=== PATIENT | male | born 1985 | race Caucasian/White ===

== ENCOUNTER 2017-05-25 02:23 | Emergency (ER) | payer SELFPAY ==
[2017-05-25] MEDS ORDERED: ATIVAN INJ 2 MG VIAL IVP ONE (02:29)
[2017-05-25] MEDS ORDERED: NS 1000 ML 1,000 ML ONE (02:30)
[2017-05-25] MEDS ORDERED: THIAMINE HCL INJ ONE (02:31)
[2017-05-25] MEDS ORDERED: PHENOBARBITAL SODIUM INJ 65 MG VIAL ONE (02:31)
[2017-05-25] MEDS ORDERED: MAGNESIUM SULFATE 50% INJ ONE (02:31)
[2017-05-25] MEDS ORDERED: MVI INJ (ADULT) IV ONE (02:32)
[2017-05-25 02:34] VITALS: BP 164/104; BMI 24.2
[2017-05-25] MEDS ORDERED: ATIVAN INJ 2 MG VIAL ONE (02:34)
[2017-05-25] MEDS ORDERED: NS 1000 ML 1,000 ML with THIAMINE HCL INJ 100 MG, MAGNESIUM SULFATE 50% INJ 1 GM, MVI I... IV SCH ×5 (03:00)
[2017-05-25 03:12] LABS: BASOPHILS # (AUTO) 0.1 X10^3/uL (0.0-0.1); BASOPHILS % (AUTO) 0.9 % (0.2-1.0); EOSINOPHILS % (AUTO) 0.6 % (0.9-2.9); HEMATOCRIT 49.6 % (42.0-54.0); HEMOGLOBIN 17.1 g/dL (13.5-18.0); LYMPHOCYTES # (AUTO) 2.4 X10^3/uL (1.3-2.9); MEAN CORPUSCULAR HGB CONC 34.5 g/dL (33.0-35.0); MEAN CORPUSCULAR VOLUME 95.9 fL (80.0-100.0); MEAN PLATELET VOLUME 8.3 fL (7.4-11.0); MONOCYTES % (AUTO) 12.2 % (0.0-13.0); NEUTROPHILS # (AUTO) 4.4 x10^3/uL (2.2-4.8); NEUTROPHILS % (AUTO) 56.3 % (42.0-75.0); PLATELET COUNT 265 X10^3/uL (150.0-450.0); RED BLOOD COUNT 5.18 X10^6/uL (4.7-6.0); WHITE BLOOD COUNT 7.9 X10^3/uL (3.6-10.0)
[2017-05-25 03:13] LABS: BILIRUBIN,URINE NEGATIVE (NEGATIVE); BLOOD/HEMOGLOBIN,URINE 1+ (NEGATIVE); GLUCOSE, URINE NEGATIVE (NEGATIVE); KETONES,URINE 4+ (NEGATIVE); LEUKOCYTE ESTERASE ,URINE NEGATIVE (NEGATIVE); NITRITES,URINE NEGATIVE (NEGATIVE); PROTEIN,URINE 2+ (NEGATIVE); UROBILINOGEN,URINE NORMAL (NORMAL)
[2017-05-25 03:19] LABS: ALANINE AMINOTRANSFERASE 72 Units/L (12-78); ALBUMIN 4.2 g/dL (3.4-5.0); ALKALINE PHOSPHATASE 144 Units/L (46-116); ASPARTATE AMINO TRANSFERASE 94 Units/L (15-37); BLOOD UREA NITROGEN 11 mg/dL (7-18); CALCIUM 9.2 mg/dL (8.5-10.1); CARBON DIOXIDE 26.3 mmol/L (21-32); CHLORIDE 101 mmol/L (98-107); CREATININE 1.08 mg/dL (0.70-1.30); SODIUM 140 mmol/L (136-145); TOTAL PROTEIN 8.2 g/dL (6.4-8.2); eGFR BLACK RACES > 60 (>60); eGFR NON BLACK RACES > 60 (>60)
[2017-05-25 03:24] LABS: SALICYLATE < 2.8 mg/dL (2.8-20)
[2017-05-25 03:27] LABS: APPEARANCE,URINE CLEAR (CLEAR); COLOR,URINE YELLOW (YELLOW); RBC,URINE 0-3 /HPF (NEGATIVE)
[2017-05-25 03:28] LABS: BACTERIA,URINE NEGATIVE /HPF (NEGATIVE); MUCUS,URINE FEW /HPF (NEGATIVE); SQUAMOUS EPITHELIAL CELL,UR RARE /HPF (NEGATIVE)
[2017-05-25 03:32] LABS: BLOOD ALCOHOL 314 mg/dL (0-19.9)
--- NOTE | 2017-05-25 03:56 | DR.GENAD ---
HPI - Complaint/Symptoms Chief Complaint Doctors Comments: Patient states that he has been drinking alcohol for a while and has been to two different facilities in attempt to quit drinking but each time he has a relapse. He is single, works as cook. He denies being homocidal or suicidal. Chief Complaint:: PT STATES THAT HE HAS BEEN DRINKING ABOUT 1-2 PINTS OF VODKA EVERY DAY FOR THE PAST MONTH. REQUESTING DETOX BECAUSE HE STATES HE CAN NO LONGER TOLERATE THIS MUCH ALCOHOL. - Source History Provided: Patient - Mode of Arrival Mode of Arrival: Ambulatory - Timing Onset of Chief Complaint: 05/25/17 PMH - PMH Past Medical History: Yes Past Medical History: Asthma Past Surgical History: No - Family History History of Family Medical Conditions: Yes Family Medical History: Diabetes Mellitus, Cancer, [place], Hypertension - Social History Do you use any recreational Drugs:: Yes (THC) - infectious screening Have you traveled outside the country in the last 6 months?: No ROS - Review of Systems Eyes: No Symptoms Reported ENTM: No Symptoms Reported Respiratoy: No Symptoms Reported Cardiovascular: No Symptoms Reported Gastrointestinal/Abdominal: No Symptoms Reported Genitourinary: No Symptoms Reported Neurological: No Symptoms Reported Musculoskeletal: No Symptoms Reported Integumentary: No Symptoms Reported Hematologic/Lymphatic: No Symptoms Reported Endocrine: No Symptoms Reported Psychiatric: No Symptoms Reported All Other Systems: Reviewed and Negative PE - Vital Signs Vitals: Temperature 98.4 F Pulse Rate 130 Respiratory Rate 18 Blood Pressure [Left Arm] 120/76 Blood Pressure 164/104 O2 Sat by Pulse Oximetry 97 - General Limitations: No Limitations General Appearance: Alert, In No Apparent Distress - Head Head Exam: Normal Inspection, Atraumatic - Eyes Eye exam: Normal Appearance, PERRL, EOMI - ENT ENT Exam: Normal Exam, Normal Oropharynx External Ear Exam: Normal External Inspection TM/Canal Exam: Bilateral Normal Nose Exam: Normal Nose Exam Mouth Exam: Normal Inspection Throat Exam: Normal Inspection - Neck Neck Exam: Normal Inspection, Full ROM - Chest Chest Inspection: Normal Inspection, Symmetric Chest Wall Rise - Respiratory Respiratory Exam: Normal Lung Sounds Bilat Respiratory Exam: Bilateral Clear to Auscultation - Cardiovascular Cardiovascular Exam: Regular Rate, Normal Rhythm - Abdominal Exam Abdominal Exam: Normal Inspection, Normal Bowel Sounds Abdominal Tenderness: negative: RUQ, RLQ, LUQ, LLQ, Epigastrium, Suprapubic, Diffuse, Mild, Moderate, Severe, Other - Extremities Extremities Exam: Normal Inspection, Full ROM - Back Back Exam: Normal Inspection, Full ROM - Neurologic Neurological Exam: Alert, Oriented X3, CN II-XII Intact - Psychiatric Psychiatric Exam: Normal Affect, Normal Mood - Skin Skin Exam: Warm, Dry, Intact Course - Treatment Treatment: Behavioral Health will be contacting family concerning counseling arrangement. - Reevaluation 1st: Improved - Education/Counseling Education/Counseling: Patient Educated On: Diagnosis, Needs for Follow Up ROR - Labs Reviewed Result Diagrams: 05/25/17 02:58 05/25/17 02:58 Laboratory: WBC 7.9 X10^3/uL (3.6-10.0) 05/25/17 02:58 RBC 5.18 X10^6/uL (4.7-6.0) 05/25/17 02:58 Hgb 17.1 g/dL (13.5-18.0) 05/25/17 02:58 Hct 49.6 % (42.0-54.0) 05/25/17 02:58 MCV 95.9 fL (80.0-100.0) 05/25/17 02:58 MCH 33.0 pg (27.0-34.0) 05/25/17 02:58 MCHC 34.5 g/dL (33.0-35.0) 05/25/17 02:58 RDW 14.0 % (11.6-16.5) 05/25/17 02:58 Plt Count 265 X10^3/uL (150.0-450.0) 05/25/17 02:58 MPV 8.3 fL (7.4-11.0) 05/25/17 02:58 Neut % 56.3 % (42.0-75.0) 05/25/17 02:58 Lymph % 30.0 % (21.0-51.0) 05/25/17 02:58 [place] % 12.2 % (0.0-13.0) 05/25/17 02:58 Eos % 0.6 % (0.9-2.9) L 05/25/17 02:58 Baso % 0.9 % (0.2-1.0) 05/25/17 02:58 Neut # 4.4 x10^3/uL (2.2-4.8) 05/25/17 02:58 Lymph # 2.4 X10^3/uL (1.3-2.9) 05/25/17 02:58 [place] # 1.0 x10^3/uL (0.3-0.8) H 05/25/17 02:58 Eos # 0.0 x10^3/uL (0.0-0.2) 05/25/17 02:58 Baso # 0.1 X10^3/uL (0.0-0.1) 05/25/17 02:58 Absolute Nucleated RBC 0.1 /100WBC 05/25/17 02:58 Sodium 140 mmol/L (136-145) 05/25/17 02:58 Corrected Sodium TNP 05/25/17 02:58 Potassium 4.0 mmol/L (3.5-5.1) 05/25/17 02:58 Chloride 101 mmol/L (98-107) 05/25/17 02:58 Carbon Dioxide 26.3 mmol/L (21-32) 05/25/17 02:58 BUN 11 mg/dL (7-18) 05/25/17 02:58 Creatinine 1.08 mg/dL (0.70-1.30) 05/25/17 02:58 Est GFR (MDRD) Af Amer > 60 (>60) 05/25/17 02:58 Est GFR (MDRD) Non-Af > 60 (>60) 05/25/17 02:58 Glucose 90 mg/dL (65-99) 05/25/17 02:58 Calcium 9.2 mg/dL (8.5-10.1) 05/25/17 02:58 Corrected Calcium TNP 05/25/17 02:58 Total Bilirubin 0.40 mg/dL (0.2-1.0) 05/25/17 02:58 AST 94 Units/L (15-37) H 05/25/17 02:58 ALT 72 Units/L (12-78) 05/25/17 02:58 Alkaline Phosphatase 144 Units/L (46-116) H 05/25/17 02:58 Total Protein 8.2 g/dL (6.4-8.2) 05/25/17 02:58 Albumin 4.2 g/dL (3.4-5.0) 05/25/17 02:58 Globulin 4.0 g/dL (2.5-4.5) 05/25/17 02:58 Albumin/Globulin Ratio 1.1 Ratio (1.1-2.1) 05/25/17 02:58 Specimen Type Clean catch urine 05/25/17 03:01 Urine Color Yellow (YELLOW) 05/25/17 03:01 Urine Appearance Clear (CLEAR) 05/25/17 03:01 Urine pH 5.0 (5.0 - 8.0) 05/25/17 03:01 Ur Specific [place] 1.020 (1.000-1.030) 05/25/17 03:01 Urine Protein 2+ (NEGATIVE) 05/25/17 03:01 Urine Glucose (UA) Negative (NEGATIVE) 05/25/17 03:01 Urine Ketones 4+ (NEGATIVE) 05/25/17 03:01 Urine Occult Blood 1+ (NEGATIVE) 05/25/17 03:01 Urine Nitrite Negative (NEGATIVE) 05/25/17 03:01 Urine Bilirubin Negative (NEGATIVE) 05/25/17 03:01 Urine Urobilinogen Normal (NORMAL) 05/25/17 03:01 Ur Leukocyte Esterase Negative (NEGATIVE) 05/25/17 03:01 Urine RBC 0-3 /HPF (NEGATIVE) 05/25/17 03:01 Urine WBC 0-3 /HPF (NEGATIVE) 05/25/17 03:01 Ur Squamous Epith Cells Rare /HPF (NEGATIVE) 05/25/17 03:01 Urine Bacteria Negative /HPF (NEGATIVE) 05/25/17 03:01 Urine Mucus Few /HPF (NEGATIVE) 05/25/17 03:01 Ur Culture Indicated? No/not indicated 05/25/17 03:01 Salicylates < 2.8 mg/dL (2.8-20) L 05/25/17 02:58 Urine Opiates Screen Negative (NEG=<300) 05/25/17 03:01 Urine Methadone Screen Negative (NEG=<300) 05/25/17 03:01 Acetaminophen 0.0 ug/mL (10-30) L 05/25/17 02:58 Ur Barbiturates Screen Negative (NEG=<200) 05/25/17 03:01 Ur Phencyclidine Scrn Negative (NEG=<25) 05/25/17 03:01 Ur Amphetamines Screen Negative (NEG=<1000) 05/25/17 03:01 U Benzodiazepines Scrn Negative (NEG=<200) 05/25/17 03:01 Urine Cocaine Screen Negative (NEG=<300) 05/25/17 03:01 U Marijuana (THC) Screen Negative (NEG=<50) 05/25/17 03:01 Ethyl Alcohol mg/dL 241 mg/dL (0-19.9) H 05/25/17 05:25 - Diagnosis Discharge Problem: Alcoholic - Discharge Plan Condition: Stable - Follow ups/Referrals Follow ups/Referrals: NFD,None [Primary Care Provider] - 3 days - Instructions
== END 2017-05-25 06:50 | disposition home or self-care (01) ==
LOC: ER 02:23
DX: F10.20 Alcohol dependence, uncomplicated (principal)
CPT/HCPCS: 36415; 80053; 80307; 80320; 81001; 85025; 93005; 93010; 96365; 96367; 96374; 99283; A4222; G0434; G6038; G6039; G6040; J2060; J2560; J3411; J3475